=== PATIENT | male | born 1955 | race Caucasian/White ===

== ENCOUNTER → 2023-03-28 10:10 | Outpatient (BNVA) | payer MEDICARE, SELFPAY | PROVIDERS: Family Provider Family Medicine; PCP Family Medicine; Visit Provider Nurse Practitioner Family | DX: L23.1 Allergic contact dermatitis due to adhesives (principal); L81.4 Other melanin hyperpigmentation; D22.5 Melanocytic nevi of trunk; L20.89 Other atopic dermatitis | CPT/HCPCS: 99214 ==

== ENCOUNTER → 2023-04-21 13:29 | Outpatient (BNVA) | payer MEDICARE, SELFPAY | PROVIDERS: Family Provider Family Medicine; PCP Family Medicine; Visit Provider Nurse Practitioner Family | DX: L30.9 Dermatitis, unspecified (principal); D22.5 Melanocytic nevi of trunk; L20.89 Other atopic dermatitis; B35.8 Other dermatophytoses | CPT/HCPCS: 11104; 99213 ==

== ENCOUNTER → 2023-06-06 09:04 | Outpatient (BNVA) | payer MEDICARE, SELFPAY | PROVIDERS: Family Provider Family Medicine; PCP Family Medicine; Visit Provider Nurse Practitioner Family | DX: B35.8 Other dermatophytoses (principal); L29.8 Other pruritus; D22.5 Melanocytic nevi of trunk; L20.89 Other atopic dermatitis | CPT/HCPCS: 99213 ==

== ENCOUNTER → 2024-04-23 07:47 | Outpatient (BNVA) | payer MEDICARE, SELFPAY | PROVIDERS: Family Provider Family Medicine; PCP Family Medicine; Visit Provider Nurse Practitioner Family | DX: D22.5 Melanocytic nevi of trunk (principal); B35.8 Other dermatophytoses; L57.0 Actinic keratosis; L81.4 Other melanin hyperpigmentation; D69.2 Other nonthrombocytopenic purpura | CPT/HCPCS: 17000; 99214 ==

== ENCOUNTER → 2024-06-04 07:54 | Outpatient (BNVA) | payer MEDICARE, SELFPAY | PROVIDERS: Family Provider Family Medicine; PCP Family Medicine; Visit Provider Nurse Practitioner Family | DX: B35.8 Other dermatophytoses (principal); L21.8 Other seborrheic dermatitis; L57.0 Actinic keratosis; L81.4 Other melanin hyperpigmentation; D69.2 Other nonthrombocytopenic purpura; L57.8 Other skin changes due to chronic exposure to nonionizing radiation; D22.5 Melanocytic nevi of trunk | CPT/HCPCS: 17000; 99214 ==

== ENCOUNTER → 2024-12-03 09:42 | Outpatient (BNVA) | payer MEDICARE, SELFPAY | PROVIDERS: Family Provider Family Medicine; PCP Family Medicine; Visit Provider Nurse Practitioner Family | DX: D22.5 Melanocytic nevi of trunk (principal); L81.4 Other melanin hyperpigmentation; L57.8 Other skin changes due to chronic exposure to nonionizing radiation; L57.0 Actinic keratosis | CPT/HCPCS: 17000; 99213 ==

== ENCOUNTER → 2025-06-02 10:10 | Outpatient (BNVA) | payer MEDICARE, SELFPAY | PROVIDERS: Family Provider Family Medicine; PCP Family Medicine; Visit Provider Nurse Practitioner Family | DX: L81.4 Other melanin hyperpigmentation (principal); L57.8 Other skin changes due to chronic exposure to nonionizing radiation; D22.5 Melanocytic nevi of trunk; L82.1 Other seborrheic keratosis; L57.0 Actinic keratosis | CPT/HCPCS: 17000; 99213 ==